=== PATIENT | female | born 1970 | race Caucasian/White ===

== ENCOUNTER 2019-11-19 08:24 | Outpatient (CLI) | payer OTHER, SELFPAY ==
[2019-11-20 14:21] LABS: COVID-19 RT-PCR UVMMC Result Negative (Negative)
== END 2019-11-19 08:44 ==
PROVIDERS: Visit Provider Nurse Practitioner Family
DX: Z11.59 Encounter for screening for other viral diseases (principal)
CPT/HCPCS: U0003

== ENCOUNTER 2019-12-18 09:45 | Outpatient (CLI) | payer OTHER, SELFPAY ==
[2019-12-22 19:28] LABS: SARS-CoV-2 RNA Undetected (Undetected)
== END 2019-12-18 10:05 ==
LOC: NCHCO 11:21 → LBO 14:17 → NCHCO 15:58 → LBO 15:59
PROVIDERS: Visit Provider Nurse Practitioner Family
DX: Z11.59 Encounter for screening for other viral diseases (principal)
CPT/HCPCS: U0003

== ENCOUNTER 2020-01-15 08:03 | Outpatient (CLI) | payer OTHER, SELFPAY ==
[2020-01-16 22:25] LABS: SARS-CoV-2 RNA Undetected (Undetected); SARS-CoV-2 Specimen Source Nasopharynx
== END 2020-01-15 08:23 ==
PROVIDERS: Visit Provider Nurse Practitioner Family
DX: Z11.59 Encounter for screening for other viral diseases (principal)
CPT/HCPCS: U0003

== ENCOUNTER 2020-04-10 10:07 | Outpatient (REF) | payer OTHER, SELFPAY ==
--- NOTE | 2020-04-10 09:07 | PAPFT_PTH ---
PATIENT: Soraya Miller LOC: [facility]#:[id number] AGE/SX: 49/F ROOM: RE04/10/[address]: Prerna Weir : 1970 BED: DIS: 04/10/2020 SPEC #: [id number] RECD: 04/11/20 13:02 STATUS: CHERIE REQ #: [id number] GUILLERMO: 04/10/20 09:[address]: Prerna Weir DEPT: [facility] Cytology RECD BY: Megan Weiner Tissues: 1 - CX/ENDOCX FOR PAP SMEARS Procedures: PAP THIN PREP/UVM Screening HPV DNA PROBE Comments: [id number] ([place]) (CHLAMYDIA/GC)
[2020-04-16 15:12] LABS: Chlamydia Result Negative (Negative); GC Result Negative (Negative)
== END 2020-04-10 10:27 ==
LOC: NCHCN 10:07
PROVIDERS: PCP Nurse Practitioner Family; Visit Provider Nurse Practitioner Family
DX: L29.8 Other pruritus (principal); Z00.00 Encounter for general adult medical examination without abnormal findings; Z12.4 Encounter for screening for malignant neoplasm of cervix; Z01.419 Encounter for gynecological examination (general) (routine) without abnormal findings; Z11.51 Encounter for screening for human papillomavirus (HPV)
CPT/HCPCS: 87491; 87591; 88142; 87480; 87510; 87624; 87660

== ENCOUNTER 2020-04-11 13:27 | Outpatient (REF) | payer OTHER, SELFPAY ==
[2020-04-11 21:06] LABS: ALT 28 U/L (14-59); AST 17 U/L (15-37); Calculated LDL 71 mg/dL (<100); Cholesterol 183 mg/dL (<200); HDL Cholesterol 105 mg/dL (40-60); Triglyceride 38 mg/dL (<150)
== END 2020-04-11 13:47 ==
LOC: NCHCN 13:27
PROVIDERS: PCP Nurse Practitioner Family; Visit Provider Nurse Practitioner Family
DX: Z00.00 Encounter for general adult medical examination without abnormal findings (principal)
CPT/HCPCS: 80061; 84450; 84460

== ENCOUNTER 2020-05-22 14:01 | Outpatient (REF) | payer SELFPAY ==
[2020-05-25 17:20] LABS: COVID-19 RT-PCR Result NEGATIVE (Negative)
== END 2020-05-22 14:21 ==
LOC: NCHCN 14:01
PROVIDERS: PCP Nurse Practitioner Family; Visit Provider Nurse Practitioner Family
DX: Z20.828 Contact with and (suspected) exposure to other viral communicable diseases (principal)
CPT/HCPCS: U0003

== ENCOUNTER 2021-02-12 08:10 | Outpatient (REF) | payer BC, SELFPAY ==
[2021-02-13 00:50] LABS: COVID-19 RT-PCR UVMMC Result Negative (Negative)
== END 2021-02-12 08:11 | disposition home or self-care (01) ==
LOC: NCHCN 08:10
PROVIDERS: PCP Nurse Practitioner Family; Visit Provider Nurse Practitioner Family
DX: Z20.822 Contact with and (suspected) exposure to COVID-19 (principal)
CPT/HCPCS: U0003

== ENCOUNTER 2021-05-01 15:13 | Outpatient (REF) | payer BC, SELFPAY ==
[2021-05-02 01:02] LABS: COVID-19 RT-PCR UVMMC Result Negative (Negative)
== END 2021-05-01 15:14 | disposition home or self-care (01) ==
LOC: NCHCN 15:13
PROVIDERS: PCP Nurse Practitioner Family; Visit Provider Nurse Practitioner Family
DX: Z20.822 Contact with and (suspected) exposure to COVID-19 (principal)
CPT/HCPCS: U0003

== ENCOUNTER 2021-05-05 16:14 | Outpatient (REF) | payer BC, SELFPAY ==
[2021-05-06 21:43] LABS: COVID-19 RT-PCR UVMMC Result Negative (Negative)
== END 2021-05-05 16:15 | disposition home or self-care (01) ==
LOC: NCHCN 16:14
PROVIDERS: PCP Nurse Practitioner Family; Visit Provider Nurse Practitioner Family
DX: Z20.822 Contact with and (suspected) exposure to COVID-19 (principal)
CPT/HCPCS: U0003

== ENCOUNTER 2021-10-09 08:00 | Outpatient (REF) | payer BC, SELFPAY ==
[2021-10-09 14:15] LABS: Anion Gap 7.7 mmol/L (3-11); BUN 16 mg/dL (7-18); CO2 27.3 mmol/L (21.0-32.0); CREATININE 0.7 mg/dL (0.55-1.02); Calcium 8.6 mg/dL (8.5-10.1); Calculated LDL 88 mg/dL (<100); Chloride 106 mmol/L (98-107); Cholesterol 185 mg/dL (<200); Glucose 82 mg/dL (74-106); HDL Cholesterol 86 mg/dL (40-60); Potassium 4.3 mmol/L (3.5-5.1); Sodium 141 mmol/L (136-145); Triglyceride 55 mg/dL (<150)
== END 2021-10-09 08:01 | disposition home or self-care (01) ==
LOC: NCHCN 08:00
PROVIDERS: PCP Nurse Practitioner Family; Visit Provider Internal Medicine
DX: I44.7 Left bundle-branch block, unspecified (principal); R03.0 Elevated blood-pressure reading, without diagnosis of hypertension
CPT/HCPCS: 80048; 80061

== ENCOUNTER 2023-09-22 08:27 | Outpatient (REF) | payer BC, SELFPAY ==
[2023-09-22 15:31] LABS: HCT 40.7 % (36.0-46.0); HGB 13.3 g/dL (11.2-15.7); MCH 31.4 pg (27.0-33.0); MCHC 32.7 % (32.0-36.0); MCV 96 fL (80-95); MPV 12.7 fL (8.0-11.0); Platelet Count 259 10^3/uL (130-400); RBC 4.24 10^6/uL (3.93-5.22); RDW 13.3 % (11.7-14.6); RDW-SD 46.9 fL; WBC 5.39 10^3/uL (4.4-10.8)
[2023-09-22 16:37] LABS: ALT 23 U/L (14-59); AST 17 U/L (15-37); Albumin 3.7 g/dL (3.4-5.0); Alkaline Phosphatase 97 U/L (46-116); Anion Gap 8.5 mmol/L (3-11); BUN 11 mg/dL (7-18); Bilirubin, Total 0.7 mg/dL (0.2-1.0); CO2 27.5 mmol/L (21.0-32.0); CREATININE 0.8 mg/dL (0.55-1.02); Calcium 9.2 mg/dL (8.5-10.1); Calculated LDL 93 mg/dL (<100); Chloride 105 mmol/L (98-107); Cholesterol 186 mg/dL (<200); Glucose 80 mg/dL (74-106); HDL Cholesterol 86 mg/dL (40-60); Potassium 4.9 mmol/L (3.5-5.1); Sodium 141 mmol/L (136-145); Triglyceride 36 mg/dL (<150)
== END 2023-09-22 08:28 | disposition home or self-care (01) ==
LOC: NCHCN 08:27
PROVIDERS: PCP Nurse Practitioner Family; Visit Provider Nurse Practitioner Family
DX: R63.5 Abnormal weight gain (principal); Z00.00 Encounter for general adult medical examination without abnormal findings
CPT/HCPCS: 80053; 80061; 85027; 84443

== ENCOUNTER 2023-10-20 12:34 | Emergency (ER) | payer BC, SELFPAY ==
[2023-10-20] VITALS (44 sets, daily range): BP systolic 150–189; BP diastolic 76–96; PULSE 58–82; RESP 9–38; TEMP 37; O2SAT 97–99
--- NOTE | 2023-10-20 12:30 | RT.EKG_ITS ---
APPROVED REPORT Exam: Resting ECG Reason for Exam: dizziness Patient Location: E HR:77 bpm ECG Measurements Heart Rate 77 AXIS MT 146 P 55 QRSd 149 QRS -21 QT 451 T 49 QTc 512 Conclusion Sinus rhythm...normal P axis, V-rate 60- 99 Left bundle branch block...QRSd>120, broad/notched R ST elevation secondary to IVCD...Multiple VCG criteria
--- NOTE | 2023-10-20 12:45 | DI.RAD_ITS ---
Exam(s) XR CHEST 1V IN DI DEPT EXAM: XR CHEST 1V IN DI DEPT CLINICAL HISTORY: dizziness TECHNIQUE: 2D digital imaging was performed of the chest. One image was obtained. An AP view was ob tained. COMPARISON: No exams were available for comparison FINDINGS: MEDIASTINUM: Normal. HEART: Normal. There is a cardiac monitoring device in place. PULMONARY VASCULATURE: Normal. LUNGS: Clear. PLEURAL SPACE: No pleural effusion or pneumothorax. BONE:Within normal limits for the patient's age. OTHER FINDINGS:Normal. IMPRESSION: No acute pulmonary findings. DATA REPOSITORY: RADIATION DOSE DELIVERED:
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
[2023-10-20 13:01] LABS: Bilirubin Negative (Negative); Blood Negative (Negative); Clarity Clear (Clear); Glucose Negative (Negative); Ketones Negative (Negative); Leukocyte Esterase Negative (Negative); Nitrite Negative (Negative); Specific Gravity 1.015 (1.005-1.025); Urobilinogen 0.2 mg/dL (Up to 0.2)
[2023-10-20 13:09] LABS: Abs Immature Grans 0.01 10^3/uL (0.0-0.06); Absolute Basophil Count 0.07 10^3/uL (0.0-0.2); Absolute Eosinophil Count 0.08 10^3/uL (0.0-0.7); Absolute Lymphocyte Count 1.69 10^3/uL (1.2-3.4); Absolute Monocyte Count 0.38 10^3/uL (0.1-0.8); Absolute Neutrophil Count 3.13 10^3/uL (1.2-6.7); Basophils % 1.3 %; Eosinophils % 1.5 %; HCT 40.1 % (36.0-46.0); HGB 13.3 g/dL (11.2-15.7); Immature Grans % 0.2 %; Lymphocytes % 31.5 %; MCH 31.4 pg (27.0-33.0); MCHC 33.2 % (32.0-36.0); MCV 95 fL (80-95); MPV 11.4 fL (8.0-11.0); Monocytes % 7.1 %; Neutrophils % 58.4 %; Platelet Count 247 10^3/uL (130-400); RBC 4.23 10^6/uL (3.93-5.22); RDW 13.2 % (11.7-14.6); RDW-SD 46.2 fL; WBC 5.36 10^3/uL (4.4-10.8)
[2023-10-20 13:32] LABS: ALT 23 U/L (14-59); AST 16 U/L (15-37); Albumin 3.5 g/dL (3.4-5.0); Alkaline Phosphatase 92 U/L (46-116); Anion Gap 10.3 mmol/L (3-11); BUN 13 mg/dL (7-18); Bilirubin, Total 0.6 mg/dL (0.2-1.0); CO2 26.7 mmol/L (21.0-32.0); CREATININE 0.8 mg/dL (0.55-1.02); Chloride 104 mmol/L (98-107); Glucose 102 mg/dL (74-106); NT-proBNP 122 pg/mL (<300); Potassium 3.5 mmol/L (3.5-5.1); Sodium 141 mmol/L (136-145); TSH (W/Ref FT4) 2.56 uIU/mL (0.36-3.74); Total Protein 7.1 g/dL (6.4-8.2); Troponin I < 50 ng/L (< or =60)
[2023-10-20 13:38] LABS: Calcium 8.6 mg/dL (8.5-10.1)
[2023-10-20] MEDS: Omnipaque 350 MG/ML 500 ML BTL-Imaging package 85 ML IJ (14:06)
[2023-10-20] MEDS: Normal Saline - Diluent 50 ML VIAL IJ (14:07)
--- NOTE | 2023-10-20 14:10 | DI.CT_ITS ---
Exam(s) CT BRAIN NECK CTA EXAM: CT BRAIN NECK CTA CLINICAL HISTORY: sudden onset dizziness. TECHNIQUE: Imaging Protocol: Axial CT angiography was performed with multi-slice acquisition and mu lti-planar and/or 3D reconstructions. CONTRAST MATERIAL: Intravenous: Omnipaque 350 contrast volume:85 mL COMPARISON: No exams were available for comparison FINDINGS: CT Head W/O and W: Ventricles and Extra axial spaces: Normal in size and morphology for the patient's age. Hemorrhage: None. Cerebral parenchyma: Normal. No mass effect. No evidence to suggest an acute territorial infarct are seen. Midline shift: None. Brainstem/Cerebellum: Normal. Calvarium: Normal. Visualized Paranasal sinuses/Mastoids: There is mild mucosal thickening in the maxillary sinuses bila terally. Soft Tissues: Unremarkable. Enhancement: Unremarkable. CTA Neck W: Common Carotid: Right: No dissection, occlusion or significant stenosis. Left: No dissection, occlusion or significant stenosis. External Carotid: Right: No occlusion or significant stenosis. Left: No occlusion or significant stenosis. Internal Carotid: Right: No dissection, occlusion or significant stenosis. Left: No dissection, occlusion or significant stenosis. Vertebral Artery: Right: No dissection, occlusion or significant stenosis. Left: No dissection, occlusion or significant stenosis. Lung Apices: Normal. Bones: Within normal limits for the patient's age. There is straightening of the normal cervical spin e. Mild degenerative changes are seen in the cervical spine. Soft Tissues: Normal. Thyroid gland: Unremarkable. CTA Brain W: Internal Carotid Arteries: No aneurysm, occlusion or significant stenosis. Anterior Cerebral Arteries: Right: No aneurysm, occlusion or significant stenosis. Left: No aneurysm, occlusion or significant stenosis. Middle Cerebral Arteries: Right: No aneurysm, occlusion or significant stenosis. Left: No aneurysm, occlusion or significant stenosis. Posterior Cerebral Arteries: Right: No aneurysm, occlusion or significant stenosis. Left: No aneurysm, occlusion or significant stenosis. Vertebral Arteries: Right: No aneurysm, occlusion or significant stenosis. Left: No aneurysm, occlusion or significant stenosis. Basilar Artery: No aneurysm, occlusion or significant stenosis. IMPRESSION: 1. No large vessel occlusion or significant stenosis on the CT angiography of the head. 2. No acute intracranial process. 3. No occlusion or significant stenosis on the CT angiography of the neck. RADIATION DOSE DELIVERED: 1,665.46mGy.cm Total DLP DATA REPOSITORY: All CT scans at this facility are submitted to the National Radiology Data Registry (NRDR) Dose Index Registry (DIR) with the [employer] (A[employer]). RADIATION OPTIMIZATION: All CT scans at this facility use at least one of these dose optimization te chniques: automated exposure control; mA and/or kV adjustment per patient size (includes targeted exa ms where dose is matched to clinical indication); or iterative reconstruction.
[2023-10-20 16:17] LABS: Troponin I < 50 ng/L (< or =60)
== END 2023-10-20 17:59 | disposition home or self-care (01) ==
PROVIDERS: Emergency Provider Physician Assistant; PCP Nurse Practitioner Family
DX: R42 Dizziness and giddiness (principal); R55 Syncope and collapse; I44.7 Left bundle-branch block, unspecified; I10 Essential (primary) hypertension; Z82.41 Family history of sudden cardiac death
CPT/HCPCS: 70496; 70498; 80053; 93005; 99285; 71045; 81003; 83880; 84443; 84484; 85025; 93010; 99284

== ENCOUNTER 2023-12-28 20:29 | Outpatient (REF) | payer BC, SELFPAY ==
[2023-12-28 15:49] LABS: Iron 76 ug/dL (50-170); Total Iron Binding Capacity 343 ug/dL (250-450); Transferrin Sat 22 % (15-50)
[2023-12-28 16:01] LABS: Ferritin 77 ng/mL (8-252)
== END 2023-12-28 20:30 | disposition home or self-care (01) ==
LOC: NCHCN 20:29
PROVIDERS: PCP Nurse Practitioner Family; Visit Provider Nurse Practitioner Family
DX: G25.81 Restless legs syndrome (principal); I44.7 Left bundle-branch block, unspecified
CPT/HCPCS: 82728; 83540; 83550

== ENCOUNTER 2025-01-10 13:37 | Outpatient (REF) | payer BC, SELFPAY ==
--- NOTE | 2025-01-10 12:50 | PAPFT_PTH ---
PATIENT: Soraya Miller LOC: [facility]#:[id number] AGE/SX: 54/F ROOM: RE01/10/[address]: Prerna Weir : 1970 BED: DIS: 01/10/2025 SPEC #: [id number] RECD: 01/11/25 11:54 STATUS: CHERIE REQ #: [id number] GUILLERMO: 01/10/25 12:[address]: Prerna Weir DEPT: [facility] Cytology RECD BY: Megan Weiner Tissues: 1 - CX/ENDOCX FOR PAP SMEARS Procedures: PAP THIN PREP/UVM Screening HPV DNA PROBE Comments: [id number] (HPV 16 & 18/45)
[2025-01-10 20:39] LABS: HCT 40.4 % (36.0-46.0); HGB 13.6 g/dL (11.2-15.7); MCH 31.1 pg (27.0-33.0); MCHC 33.7 % (32.0-36.0); MCV 92 fL (80-95); MPV 12.2 fL (8.0-11.0); Platelet Count 241 10^3/uL (130-400); RBC 4.38 10^6/uL (3.93-5.22); RDW 12.5 % (11.7-14.6); RDW-SD 42.5 fL; WBC 6.22 10^3/uL (4.4-10.8)
[2025-01-10 20:51] LABS: ALT 20 U/L (14-59); AST 17 U/L (15-37); Albumin 3.8 g/dL (3.4-5.0); Alkaline Phosphatase 106 U/L (46-116); Anion Gap 8.2 mmol/L (3-11); BUN 13 mg/dL (7-18); Bilirubin, Total 0.8 mg/dL (0.2-1.0); CO2 30.8 mmol/L (21.0-32.0); Calcium 9.1 mg/dL (8.5-10.1); Chloride 100 mmol/L (98-107); Estimated GFR 102.07 (mL/min/1.73m2); Glucose 84 mg/dL (74-106); Potassium 3.9 mmol/L (3.5-5.1); Sodium 139 mmol/L (136-145); Total Protein 7.0 g/dL (6.4-8.2)
[2025-01-10 21:31] LABS: Calculated LDL 78 mg/dL (<100); Cholesterol 180 mg/dL (<200); HDL Cholesterol 95 mg/dL (>or=50); Triglyceride 38 mg/dL (<150)
== END 2025-01-10 13:38 | disposition home or self-care (01) ==
LOC: NCHCN 13:37
PROVIDERS: PCP Nurse Practitioner Family; Visit Provider Nurse Practitioner Family
DX: Z00.00 Encounter for general adult medical examination without abnormal findings (principal)
CPT/HCPCS: 80053; 80061; 85027; 88142; 87624

== ENCOUNTER 2025-05-02 10:34 | Outpatient (REF) | payer BC, SELFPAY ==
[2025-05-02 16:16] LABS: Anion Gap 7.3 mmol/L (3-11); BUN 13 mg/dL (9-23); CO2 27.7 mmol/L (20.0-31.0); Calcium 9.1 mg/dL (8.3-10.6); Chloride 107 mmol/L (98-107); Glucose 74 mg/dL (74-106); Potassium 3.8 mmol/L (3.5-5.1); Sodium 142 mmol/L (136-145)
== END 2025-05-02 10:35 | disposition home or self-care (01) ==
LOC: NCHCN 10:34
PROVIDERS: PCP Nurse Practitioner Family; Visit Provider Nurse Practitioner Family
DX: Z86.79 Personal history of other diseases of the circulatory system (principal)
CPT/HCPCS: 80048; 83695